=== PATIENT | female | born 1945 | race Caucasian/White ===

== ENCOUNTER 2016-05-04 05:51 | Inpatient (IN) | payer MEDICARE ==
[2016-05-04] MEDS ORDERED: CEFAZOLIN 1 GM VIAL ONE (06:13)
[2016-05-04] MEDS ORDERED: REMIFENTANIL HCL 2,000 MCG VIAL IV ONE (06:51)
[2016-05-04] MEDS ORDERED: LIDOCAINE 1% 5 ML (METHYLPARABEN FREE) ONE (06:55)
[2016-05-04] MEDS ORDERED: TRIAMCINOLONE 40 MG/ML VIAL ONE (06:55)
[2016-05-04] MEDS ORDERED: BUPIVACAINE 0.5% 30 ML VIAL ONE (06:55)
--- NOTE | 2016-05-04 06:59 | HIM.ANES ---
Anesthesia Evaluation & Plan Diagnoses: SPINAL STENOSIS, LUMBAR REGION (05/04/16) RADICULOPATHY, LUMBAR REGION (05/04/16) Consented Procedure: REMOVAL OF SPINAL IMPLANTS AND PORSTERIOR LUMBAR INTERBODY FUSION WITH INSTRUMENTATION AT LUMBAR 3-4 AND OTHER PROCEDURES INDICATED - Focused Review of Systems Cardiac History: Yes: Hx Hypertension, Hx Cardiac Disorders, Hx Abnormal Cholesterol/Hyperlipidemia EKG Rhythm: Sinus Rhythm HEENT: Yes: Cataract Removal (BILATERAL), Hx Vision Problem (WEARS GLASSES), Other HEENT Problems Respiratory: Yes: Hx Snoring Gastrointestinal: Yes: Hx Gastrointestinal Disorders, Hx Chronic Constipation Neurological/Musculoskeletal: Yes: Hx Back Pain, Hx Numbness, Tingling, Weakness in Arms & Legs (BILATERAL FEET, tremors right arm), Hx Peripheral Neuropathy, Hx Neurological Disorders Other Neurological Problems: NEUROPATHY IN FEET Psychological: Yes Hx Anxiety (DUE TO FEAR OF WALKING), Yes Hx Mental/Emotional Disorders Blood/Autoimmune: No: Hx Hepatitis (type) Smoking Status: Former smoker Hx Stress Test (date): Yes (04/16/16 EF >70% NO ISCHEMIA) Hx Echocardiogram (date): Yes (04/16/2016 EF 61% MILD MR) Surgical History: Yes: Appendectomy (1987 WITH HYSTERECTOMY), Back (L5 FUSION 2000) Other Surgical History: TOTAL HYSTERECTOMY 1987 - Focused Physical Exam NPO since: 05/03/16 2100 Mallampati: Class II Thyromental Distance: Greater than 3 Neck: Full Range of Motion Dental: Removable Dental Work Cardiovascular/Chest: Normal Respiratory: Lungs clear Any problems with anesthesia, including nausea and vomiting?: No Any relatives with a history of Malignant Hyperthermia?: No Does patient have a history of Malignant Hyperthermia?: No Beta Ema given (if appropriate): N/A Does the patient have a history of Motion Sickness-: No Other: Allergies Allergy/AdvReac Type Severity Reaction Status Date / Time No Known Allergies Allergy Verified 05/04/16 06:22 Home Medications Medication Instructions Recorded Last Taken Type Amlodipine Besylate 5 mg PO DAILY 03/23/16 05/04/16 05:00 History Biotin 10,000 mcg PO DAILY 03/23/16 05/03/16 History Cyanocobalamin (Vitamin B-12) 5,000 mcg PO DAILY 03/23/16 05/03/16 History [Vitamin B-12] Gabapentin 600 mg PO HS 03/23/16 05/03/16 History Hydrochlorothiazide 12.5 mg PO DAILY 03/23/16 05/03/16 History Ketoconazole 15 gm TP DAILY PRN 03/23/16 Unknown History Naproxen Sodium [Naproxen Sodium 500 mg PO BID 03/23/16 05/03/16 20:00 History ER] Primidone 50 mg PO BID 03/23/16 05/03/16 History Triamcinolone Acetonide 15 gm TP DAILY PRN 03/23/16 Unknown History Ergocalciferol (Vitamin D2) 50,000 units PO Tu@0900 05/04/16 04/28/16 History [Vitamin D] Height and Weight Patient's height 5 ft 2 in Patient's weight 95.254 kg Vital Signs Temperature 96.9 F L 05/04/16 06:08 Pulse Rate 73 05/04/16 06:08 Respiratory Rate 18 05/04/16 06:08 Blood Pressure 129/59 L 05/04/16 06:08 Pulse Oxygen Saturation 99 05/04/16 06:08 METS - Level of Activity: Eating, Dressing, walking around house, dishwashing ( uses walker) - Anesthetic Plan Anesthesia Type: General ASA Class: 3 -: I have examined this patient and reviewed the medical record. The patient has been assessed prior to anesthesia. Risks and benefits of anesthesia and anesthetic technique options have been discussed and all questions answered. The patient accepts the risk and desires me to proceed with the planned anesthetic.
[2016-05-04] MEDS ORDERED: FENTANYL 100 MCG/2 ML VIAL IV PRN ×2 (07:05)
[2016-05-04] MEDS ORDERED: MEPERIDINE 25 MG/ML TUBEX IV PRN (07:05)
[2016-05-04] MEDS ORDERED: LABETALOL 20 MG/4 ML SYRINGE IV PRN (07:05)
[2016-05-04] MEDS ORDERED: ONDANSETRON HCL 4 MG/2 ML VIAL IV PRN (07:05)
[2016-05-04] MEDS ORDERED: ONDANSETRON HCL 4 MG ODT TAB PO PRN (07:05)
[2016-05-04] MEDS ORDERED: hydrALAZINE 20 MG/ML VIAL IV PRN (07:05)
[2016-05-04] MEDS ORDERED: HYDROmorphone 1 MG INJECTION IV PRN ×3 (07:05→10:36)
[2016-05-04] MEDS ORDERED: LIDOCAINE 1% 30 ML VIAL (PRESERVATIVE FREE) ONE (07:13)
[2016-05-04] MEDS ORDERED: GLYCOPYRROLATE 1 MG VIAL IM ONE (10:00)
[2016-05-04] MEDS ORDERED: DEXAMETHASONE 4 MG/ML VIAL IV ONE (10:00)
[2016-05-04] MEDS ORDERED: VANCOMYCIN 1,000 MG VIAL INSTILL ONE (10:00)
[2016-05-04] MEDS ORDERED: SUCCINYLCHOLINE 20 MG/1 ML INJ 10 ML MDV IV ONE (10:00)
[2016-05-04] MEDS ORDERED: ONDANSETRON HCL 4 MG/2 ML VIAL IV ONE (10:00)
[2016-05-04] MEDS ORDERED: NEOSTIGMINE 1 MG/1 ML (1:1000) INJ 10 ML MDV IM ONE (10:00)
[2016-05-04] MEDS ORDERED: MIDAZOLAM 2 MG/2 ML VIAL IV ONE (10:00)
[2016-05-04] MEDS ORDERED: HYDROmorphone 2 MG/ML VIAL IM ONE (10:00)
[2016-05-04] MEDS ORDERED: PROPOFOL 200 MG/20 ML VIAL IV ONE (10:00)
[2016-05-04] MEDS ORDERED: VECURONIUM 10 MG VIAL IV ONE (10:00)
[2016-05-04] MEDS ORDERED: PHENYLEPHRINE 10 MG/ML VIAL IC ONE (10:00)
[2016-05-04] MEDS ORDERED: DIPHENHYDRAMINE 50 MG/ML VIAL IV PRN (10:36)
[2016-05-04] MEDS ORDERED: MAGNESIUM HYDROXIDE 30 ML BOTTLE PO PRN (10:36)
[2016-05-04] MEDS ORDERED: OXYCODONE (OxyCONTIN) 10 MG TAB PO PRN (10:36)
[2016-05-04] MEDS ORDERED: SODIUM CHLORIDE 0.9% 3 ML FLUSH FLUSH PRN (10:36)
[2016-05-04] MEDS ORDERED: Aluminum;Magnesium;Simethicone 30 ML UDC PO PRN (10:36)
[2016-05-04] MEDS ORDERED: DIPHENHYDRAMINE 25 MG CAP PO PRN (10:36)
--- NOTE | 2016-05-04 10:37 | HIMOPRPT ---
POSTERIOR LUMBAR FUSION DATE OF PROCEDURE: 05/04/16 PREOPERATIVE DIAGNOSIS: -.Lumbar Degenerative disc disease L3-4. - Lumbar spinal stenosis L3-4 - Lumbar spondylolisthesis L3-4 - Lower extremity radiculopathy left - POSTOPERATIVE DIAGNOSIS: - Lumbar degenerative disc disease L3-4. - Lumbar spinal stenosis L3-4 - Lumbar spondylolisthesis L3-4 - Lower extremity radiculopathy left PROCEDURE PERFORMED: - Lumbar laminectomy with facetectomy and foraminotomy for decompression of the cauda equina and nerve root L3-4 . - Posterior lumbar interbody and posterolateral arthrodesis L3-4 . - Posterior spinal instrumentation L3-4 . - Application of posterior interbody mechanical devices for spinal arthrodesis L3-4 - Removal previous deep spinal implants at L4-5 SURGEON: Freddy Stanley MD. HAIR WORKER: CHARLEEN Obando ANESTHESIA: General endotracheal Anesthesia. IV FLUIDS: Crystalloids ANTIBIOTICS: 2 g given immediately preoperatively and re dosed accordingly thereafter ESTIMATED BLOOD LOSS: 200 ml. SPECIMENS: Disc at L3-4. COMPLICATIONS: None. IMPLANTS: - [employer] Solera pedicle screw system 6.5 x 50 - Interbody cage device size 12. BRIEF HISTORY: Patient is a 71 years old female who underwent L4-5 fusion and instrumentation almost 15 years ago at another facility. Patient presented to our clinic with complaints of low back pain and left lower extremity radicular pain. She had evidence of adjacent segment degeneration at L3-4 with spinal stenosis and grade 1 spondylolisthesis. The patient over last several months has tried a variety of nonsurgical modalities, none of which has provided him with any significant or lasting relief of her symptoms. For this condition I recommended surgical decompression including today is listed procedure. I had a lengthy And detailed conversation With the patient and the family. We discussed the risks and benefits of both nonsurgical and surgical treatment for this condition. From a surgical standpoint, and the risks include but are not limited to bleeding, infection, dural tear, cerebrospinal fluid leak and fistula, nerve injury, persistent and worsening neurological symptoms in the lower extremities, persistent bladder and bowel dysfunction, spinal instability, progressive degenerative changes, recurrent stenosis, epidural hematoma, epidural scarring, the need for further surgery and even . All the questions were on surgery. The patient expressed understanding and still wished to proceed. She volunteered an informed consent for the surgery. DESCRIPTION OF THE PROCEDURE: The patient was seen and identified in the preop holding area. The surgical region was confirmed with the patient and initialed on the skin by the surgeon. The patient was brought back to the operating room. While lying supine in her hospital bed, she underwent induction of general endotracheal anesthesia without complications. A team "time out" was performed confirming the identity of the patient and the planned procedure. A Norman catheter and sequential compression devices on the lower extremities were then placed. These were continued for the duration of the procedure. Baseline potentials were obtained. She was transferred to the OSI flat table in a prone position on Fernando frame. All the bony prominences were adequately padded and the face and eyes were protected with a custom face pillow . The entire back and pelvic area was cleansed thoroughly with alcohol followed by Betadine. The surgical region was sealed off with plastic drapes. A C-arm was brought in for level localization. The surgical levels were identified and marked on the skin with the pen. 2 g of IV Ancef were given preoperatively within 30 min. of the surgical incision. We utilized the standard midline posterior approach to the lumbar spine. Incision was made in the skin. Bovie cautery was used for hemostasis and dissection down through the subcutaneous tissue And along the posterior elements of the lumbar spine. Exposure was continued out to the level of the facets, the facet capsules were initially preserved. A C-arm was then brought in to identify and confirm the surgical levels. At this moment to be proceeded with more complete exposure removing facet joint capsules at L3-4 . Exposure was continued out along the dorsal aspect of the transverse processes L3 and L4 . Self-retaining retractors were placed. We 1st proceeded with removal of old implants at L4-5. This was an older Medtronic an 8 pedicle screw system. Set screws were removed including the rods. The right-sided L4 pedicle screw was replaced with a 7.5 x 50 screws. The left-sided screw was outside the pedicle and was redirected using a 6.5 x 50 screw. The position was checked under AP and lateral C-arm images. Next, we proceeded with posterior decompression with laminectomy for decompression of the cauda equina and nerve root. At L3-4 a laminectomy with removal of abnormal facets was performed. All of this laminectomy was done separately from the exposure required for a and interbody fusion due to the severe stenosis and necessity for full decompression of the spinal canal. All of the laminectomy were done in a piecemeal fashion using a combination of rongeur, curettes and high-speed bur. No dural tears were encountered at any time during than.procedure. We were able to get sufficient decompression along the length of the canal from L3-L4 . The facets Joints capsules at the level above L2-3 were preserved. Bipolar cautery and FloSeal were used for hemostasis. A ball-tipped sound was used to assess adequate decompression which was felt to be satisfactory. We then proceeded with posterior lumbar interbody arthrodesis at L3-4 . This was done from the left sided approach. Total cystectomy was done to allow for adequate exposure of the disc space. With the traversing and exiting nerve roots protected, an annulotomy was performed with a scalpel. A discectomy was then performed in a piecemeal fashion using a combination of rongeur and curettes. The disc space was irrigated on multiple occasions. We then sized for and used a size 12 tall interbody cage. This cage had a very tight fit in the interbody space and the cage was packed with locally harvested autograft additional autografts were also placed around the cage in the interbody space. Final positioning of the cage was checked with orthogonal views on C-arm and felt to be satisfactory. No abnormal changes on the neurophysiologic monitoring were encountered at any time during this portion of the procedure. We then proceeded with posterolateral arthrodesis at L3-4 . The dorsal aspect of the transverse processes lamina and lateral aspects of the facets were decorticated with a high-speed bur down to bleeding bone. We then placed locally harvested autograft over the decorticated surface of the bone. Next we proceeded with application of posterior segmental instrumentation at L3- 4 . Pedicle screw starting points were identified With anatomic landmarks and with images on C-arm. The starting points were decorticated with rongeur and high-speed bur. Pedicle finder awls Were utilized To develop a channel through the pedicle at each of the levels on each side in similar fashion. Trajectory was checked periodically on C-arm. The channels were checked with the ball-tip sound, tapped and then filled with pedicle screws. 6.5 by 50 Size screws were used at all the levels except right L4 pedicle which was replaced with a 7.5 x 50 screw. No abnormal changes or neural physiologic monitoring were noted at any time during placement of the pedicle screws were. At this point each of the pedicle screws was then stimulated for an neurophysiologic monitoring. All screws were within acceptable limits. We used a 40 mm size beth to connect the pedicle screws. Orthogonal views were then out pain on C-arm and and overall alignment and fixation was felt to be satisfactory. We then proceeded for wound closure. The central canal was checked for a final time and any residual bone graft removed. Hemovac drain was then placed in the subfascial space. The deep fascia was reapproximated with #1 Vicryl sutures. Subcutaneous tissue was approximated with Vicryl sutures and nylon sutures were used for the skin. Steroid dressings were applied. Patient was rolled back onto the hospital bed. She was awakened and extubated without complication. Upon awakening, she was able to demonstrate gross motor function in upper and lower extremities. No sustained abnormal signal change were noted on neuro physiologic monitoring. Sponge, needle and instrument counts were correct x2 at the end of the procedure. Trial Mgr's of the implant company were present throughout the case to enhance patient safety. DISPOSITION: The patient would be admitted to the Orthopedic Service. Would be starting physical therapy this afternoon.
[2016-05-04] MEDS ORDERED: NALOXONE 0.4 MG/ML AMPULE IV SCH (11:00)
[2016-05-04] MEDS ORDERED: Pharmacy Discontinue All Previous Acetaminophen Orders SCH (11:00)
[2016-05-04] MEDS ORDERED: HYDROmorphone 1 MG INJECTION ONE (11:12)
[2016-05-04] MEDS: CALCIUM CARBONATE + VITAMIN D 500 MG TAB PO SCH ×2 (15:38→17:09)
[2016-05-04] MEDS: ONDANSETRON HCL 4 MG/2 ML VIAL IV SCH ×2 (15:39→17:12)
[2016-05-04] MEDS: VITAMINS, MULTIPLE CAP PO SCH ×2 (15:39→17:10)
[2016-05-04] MEDS: Cefazolin 2gm/50 ml D5W 2 GM/50 ML RTU IV SCH ×2 (15:52→23:48)
[2016-05-04] MEDS: ACETAMINOPHEN 325 MG/TAB TABLET PO SCH (17:08)
[2016-05-04] MEDS: SODIUM CHLORIDE 0.9% 3 ML FLUSH FLUSH SCH (17:10)
--- NOTE | 2016-05-04 17:50 | SC.ANESPOS ---
Post-Anesthesia Note LOC: Fully Awake Post-Anesthesia Assessment: Awake, Returned to Baseline, Hemodynamically Stable , Pain Control Adequate Phase I & II Recovery Complete: Yes Apparent Anesthesia Complication: No : N - Vital Signs Blood Pressure: 139/67 Pulse: 69 Resp Rate: 18 O2 Sat: 94 Temp: 98.4 F
[2016-05-04] MEDS: DOCUSATE-SENNA CONCENTRATE TAB PO SCH (19:40)
[2016-05-04] MEDS: OXYCODONE HCL 5 MG TABLET PO PRN (19:40)
[2016-05-04] MEDS: GABAPENTIN 300 MG CAP PO SCH (19:41)
[2016-05-04] MEDS: PRIMIDONE 50 MG TAB PO SCH (19:41)
[2016-05-04] MEDS: HYDROmorphone 1 MG INJECTION IV PRN (21:20)
[2016-05-05] MEDS: OXYCODONE HCL 5 MG TABLET PO PRN ×3 (00:01→17:16)
[2016-05-05] MEDS: ONDANSETRON HCL 4 MG/2 ML VIAL IV SCH ×2 (00:05→06:40)
[2016-05-05] MEDS: ACETAMINOPHEN 325 MG/TAB TABLET PO SCH ×4 (02:12→17:08)
[2016-05-05] MEDS: HYDROmorphone 1 MG INJECTION IV PRN (02:23)
[2016-05-05] MEDS: SODIUM CHLORIDE 0.9% 3 ML FLUSH FLUSH SCH ×2 (06:33→17:08)
[2016-05-05 07:11] LABS: BLOOD UREA NITROGEN 14 MG/DL (7-17); CALCIUM 9.2 MG/DL (8.4-10.2); CALCULATED OSMOLALITY 266 MOs/Kg (270-290); CHLORIDE 101 mEq/L (98-107); GLUCOSE 113 MG/DL (70-99); SODIUM LEVEL 137 mEq/L (137-146)
--- NOTE | 2016-05-05 07:23 | PCM.ORTHBL ---
- Subjective Post Op Day: 1 Daily Assessment - Patient: Reports: No new complaints, Awake Alert Oriented x4 , Feels better, Pain is less, Tolerating Regular Diet, Voiding without difficulty, Afebrile, Ambulating with Physical Therapist, Other (Denies chest pain. No radicular pain. No numbness/tingling. No loss of bowel/bladder function.). Denies: Shortness of breath, Nausea, Vomiting - Objective / Physical Exam Vital Signs: Temperature: 99.1 F (05/05/16 06:00) HR: 82 (05/05/16 06:00)RR: 20 (05/05/16 06: 00) BP: 143/60 (05/05/16 06:00)Pulse Ox: 95 (05/05/16 06:00) General: Alert, Oriented x3, Cooperative, No acute distress, Well appearing Musculoskeletal / Extremities: 2 plus Dorsalis Pedis Pulse, Dressing Clean/Dry/ Intact. negative: Tenderness (no calf tenderness) Neurological: Positive Sensation First Dorsal Web Space, Sensation to light touch intact, Extensor Hallicus Longus Intact, Flexor Hallicus Longus Intact, Dorsiflexion Intact, Plantarflexion Intact Laboratory/Diagnostics Reviewed: 05/05/16 06:37 05/05/16 06:37 - Assessment and Plan (1) S/P lumbar spinal fusion Acute Z98.1 - ARTHRODESIS STATUS Present on Admission: Yes Plan: POD#1 s/p lumbar fusion PT/WBAT TEDS/SCDS Continue pain management D/C planning, plan likely for home tomorrow.
[2016-05-05] MEDS ORDERED: ERGOCALCIFEROL (VITAMIN D2) 50000 UNITS CAP PO SCH (09:00)
[2016-05-05] MEDS ORDERED: BIOTIN 10000 MCG PO SCH (09:00)
[2016-05-05] MEDS: Cefazolin 2gm/50 ml D5W 2 GM/50 ML RTU IV SCH (09:09)
[2016-05-05] MEDS: AMLODIPINE 5 MG TAB PO SCH (09:09)
[2016-05-05] MEDS: CYANOCOBALAMIN (Vitamin B-12) 500 MCG TABLET PO SCH (09:09)
[2016-05-05] MEDS: PRIMIDONE 50 MG TAB PO SCH ×2 (09:09→21:47)
[2016-05-05] MEDS: HYDROCHLOROTHIAZIDE 12.5 MG CAP PO SCH (09:09)
[2016-05-05] MEDS ORDERED: ONDANSETRON HCL 4 MG/2 ML VIAL IV PRN (10:37)
[2016-05-05] MEDS: VITAMINS, MULTIPLE CAP PO SCH (12:27)
[2016-05-05] MEDS: CALCIUM CARBONATE + VITAMIN D 500 MG TAB PO SCH ×2 (12:28→17:08)
--- NOTE | 2016-05-05 20:38 | PCM.DCS92 ---
- Final/Secondary Discharge Diagnosis (1) S/P lumbar spinal fusion Acute Z98.1 - ARTHRODESIS STATUS Present on Admission: Yes Plan/Goal/Comment: Progressing well with PT. Avoid flexion/rotation of the spine. No lifting greater than 5 pounds. Continue pain management. No NSAIDs for 3 months. Do not remove dressing. OK to shower with dressing in place. Call with any dressing concerns. Stable for discharge home. To follow-up in office in 2 weeks or earlier as needed. Discharge Disposition: Home Discharge Condition: Stable Cognitive Discharge Status: Unimpaired Fuctional Discharge Status: Walker Assistance, Post-op Weakness Physician Follow up/Referrals: Freddy Stanley MD [Staff Physician] - Two Weeks Home Medications/ New Prescriptions: New Oxycodone Immediate Release [Oxycodone Immediate Release (OxyIR)] 5 mg PO Q6H PRN #40 tab PRN Reason: Pain Senna Concentrate [Senokot] 30 tab PO QHS #60 tablet No Action Triamcinolone Acetonide 1 gm TOP DAILY PRN PRN Reason: heat rash Naproxen Sodium [Naproxen Sodium ER] 500 mg PO BID Amlodipine Besylate 5 mg PO DAILY Biotin 10,000 mcg PO DAILY Cyanocobalamin (Vitamin B-12) [Vitamin B-12] 5,000 mcg PO DAILY Gabapentin 600 mg PO HS Primidone 50 mg PO BID Hydrochlorothiazide 12.5 mg PO DAILY Ketoconazole 1 gm TOP DAILY PRN PRN Reason: heat rash Ergocalciferol (Vitamin D2) [Vitamin D] 50,000 units PO Tu@0900 Discharge Home Medication List Amlodipine Besylate 5 mg PO DAILY 03/23/16 [History Confirmed 05/04/16 Last Taken 05/04/16 05:00] Biotin 10,000 mcg PO DAILY 03/23/16 [History Confirmed 03/23/16 Last Taken 05/03] Cyanocobalamin (Vitamin B-12) [Vitamin B-12] 5,000 mcg PO DAILY 03/23/16 [ History Confirmed 03/23/16 Last Taken 05/03/16] Gabapentin 600 mg PO HS 03/23/16 [History Confirmed 03/23/16 Last Taken 05/03/16 ] Hydrochlorothiazide 12.5 mg PO DAILY 03/23/16 [History Confirmed 03/23/16 Last Taken 05/03/16] Ketoconazole 1 gm TOP DAILY PRN 03/23/16 [History Confirmed 05/04/16 Last Taken Unknown] Primidone 50 mg PO BID 03/23/16 [History Confirmed 03/23/16 Last Taken 05/03/16] Triamcinolone Acetonide 1 gm TOP DAILY PRN 03/23/16 [History Confirmed 05/04/16 Last Taken Unknown] Ergocalciferol (Vitamin D2) [Vitamin D] 50,000 units PO Tu@0900 05/04/16 [ History Confirmed 05/04/16 Last Taken 04/28/16] Oxycodone Immediate Release [Oxycodone Immediate Release (OxyIR)] 5 mg PO Q6H PRN #40 tab 05/05/16 [Rx Last Taken Unknown] Senna Concentrate [Senokot] 30 tab PO QHS #60 tablet 05/05/16 [Rx Last Taken Unknown] Diet at Discharge: As Tolerated, Regular Activity: Limited (Avoid flexion/rotation of the spine. No lifting greater than 5 pounds.), No Heavy Lifting, No Driving Call Office For: Worsening Symptoms, Wound is Draining Pus, Fever over 101 F, Fever over 100.5, Wound is Painful, Wound is Red, Weight Gain (see below), Pain Uncontrolled By Meds, Other (See Details) Discontinue use of:: Alcohol, All Illegal Substances, All Types of Tobacco - DC Summary Notes Hospital Course Note:: Discharge summary on patient named MARGRET DAIGLE admitted to [facility] on 05/04/16 by Freddy Stanley MD. Date of discharge is [05/06/16]. Afebrile. Hospital course and surgery uneventful. Progressing well with PT. Avoid flexion/rotation of the spine. No lifting greater than 5 pounds. Continue pain management. No NSAIDs for 3 months. Do not remove dressing. OK to shower with dressing in place. Call with any dressing concerns. Stable for discharge home. To follow-up in office in 2 weeks or earlier as needed. Wound Care Surgical Site: Yes Site Description (if applicable): lower back May Shower Starting:: upon discharge Dressing/Site Care (if applicable): Do not remove dressing. OK to shower with dressing in place. Call with any dressing concerns Medical Equipment (Order must still be written on paper): Walker Remove Transdermal Scopalamine patch if present: YES Medication Instructions: Take Stool Softener Continue Ice Packs/Ice Machine to Operative Area: Yes Activity as Tolerated: No (no lifting greater than 5 pounds. Avoid flexion/ rotation of the spine) Weight Bearing: As Tolerated Current Dressing: Ioban Dressing Care: Keep Wound Clean & Dry, Shower with Tegaderm Dsg (Ioban), No Tub Baths, Do Not Change Dressing (Do not remove dressing. OK to shower with dressing in place. Call with any dressing concerns) - Consults/Home Health Outpatient Consults: None - Physical Exam Vital Signs: Initial Vitals Temperature 96.9 F L 05/04/16 06:08 Pulse Rate 73 05/04/16 06:08 Respiratory Rate 18 05/04/16 06:08 Blood Pressure 129/59 L 05/04/16 06:08 Pulse Oxygen Saturation 99 05/04/16 06:08 Constitutional: No apparent distress, Alert, Well appearing Oriented to: Time, Person, Place - HEENT Head: Normal - Neurologic Memory Impaired: Normal Motor Function: Normal Cerebellar: Normal Mood Description: Normal Thought: Coherent Perception: Normal
[2016-05-05] MEDS: DOCUSATE-SENNA CONCENTRATE TAB PO SCH (21:47)
[2016-05-05] MEDS: GABAPENTIN 300 MG CAP PO SCH (21:47)
[2016-05-06] MEDS: DOCUSATE-SENNA CONCENTRATE TAB PO SCH (00:52)
[2016-05-06] MEDS: ACETAMINOPHEN 325 MG/TAB TABLET PO SCH ×3 (00:53→11:39)
[2016-05-06] MEDS: SODIUM CHLORIDE 0.9% 3 ML FLUSH FLUSH SCH (06:23)
--- NOTE | 2016-05-06 06:27 | PCM.ORTHBL ---
- Subjective Post Op Day: 2 Daily Assessment - Patient: Reports: No new complaints, Awake Alert Oriented x4 , Feels better, Tolerating Regular Diet, Voiding without difficulty, Afebrile, Ambulating with Physical Therapist (progressing well), Other (Denies radicular pain or numbness/tingling. Denies chest pain). Denies: Shortness of breath, Nausea, Vomiting - Objective / Physical Exam Vital Signs: Temperature: 98.9 F (05/06/16 05:50) HR: 70 (05/06/16 05:50)RR: 20 (05/06/16 05: 50) BP: 110/50 (05/06/16 05:50)Pulse Ox: 95 (05/06/16 05:50) General: Alert, Oriented x3, Cooperative, No acute distress, Well appearing Musculoskeletal / Extremities: 2 plus Dorsalis Pedis Pulse, Dressing Clean/Dry/ Intact. negative: Tenderness (no calf tenderness) Neurological: Positive Sensation First Dorsal Web Space, Sensation to light touch intact, Extensor Hallicus Longus Intact, Flexor Hallicus Longus Intact, Dorsiflexion Intact, Plantarflexion Intact - Assessment and Plan (1) S/P lumbar spinal fusion Acute Z98.1 - ARTHRODESIS STATUS Present on Admission: Yes Plan: POD#2 s/p lumbar fusion PT/WBAT. Avoid flexion/rotation of the spine. No lifting greater than 5 pounds. TEDS/SCDS Continue pain management Discharge plan for home today. To follow-up in office in 2 weeks or earlier as needed.
[2016-05-06 07:20] LABS: MPV 7.9 fL (7.4-10.4)
[2016-05-06 07:40] LABS: BLOOD UREA NITROGEN 16 MG/DL (7-17); CALCIUM 9.8 MG/DL (8.4-10.2); CALCULATED OSMOLALITY 267 MOs/Kg (270-290); CHLORIDE 99 mEq/L (98-107); GLUCOSE 104 MG/DL (70-99); SODIUM LEVEL 138 mEq/L (137-146)
[2016-05-06] MEDS: HYDROCHLOROTHIAZIDE 12.5 MG CAP PO SCH (09:01)
[2016-05-06] MEDS: CYANOCOBALAMIN (Vitamin B-12) 500 MCG TABLET PO SCH (09:01)
[2016-05-06] MEDS: AMLODIPINE 5 MG TAB PO SCH (09:01)
[2016-05-06] MEDS: PRIMIDONE 50 MG TAB PO SCH (09:01)
[2016-05-06] MEDS: VITAMINS, MULTIPLE CAP PO SCH (11:39)
[2016-05-06] MEDS: CALCIUM CARBONATE + VITAMIN D 500 MG TAB PO SCH (11:39)
[2016-05-06 13:55] VITALS: BP 129/58; PULSE 77; TEMP 98.8
== END 2016-05-06 14:35 | disposition home or self-care (01) | DRG 460 ==
LOC: SDC 05:51 → MPS3 13:47
PROVIDERS: ADMIT Orthopaedic Surgery; ATTEND Orthopaedic Surgery
PROC: 0SB20ZZ Excision of Lumbar Vertebral Disc, Open Approach (ICD-10-PCS; 2016-05-04)
PROC: 0QP004Z Removal of Internal Fixation Device from Lumbar Vertebra, Open Approach (ICD-10-PCS; 2016-05-04)
PROC: 4A01X4Z Measurement of Peripheral Nervous Electrical Activity, External Approach (ICD-10-PCS; 2016-05-04)
PROC: 0SG00A1 (ICD-10-PCS; principal; 2016-05-04 07:15)
DX: M51.16 Intervertebral disc disorders with radiculopathy, lumbar region (principal); I10 Essential (primary) hypertension; M48.06 Spinal stenosis, lumbar region; M43.16 Spondylolisthesis, lumbar region; Z98.1 Arthrodesis status; E55.9 Vitamin D deficiency, unspecified; E66.9 Obesity, unspecified; Z79.899 Other long term (current) drug therapy
CPT/HCPCS: 80048; 85027; 86850; 86900; 86901; 95870; 95937; 95938; 97161; 97165; G0237; J0330; J0690; J1100; J1170; J2001; J2250; J2370; J2405; J2710; J3301; J3370; J3490